=== PATIENT | female | born 1950 | race Two or more races ===

== ENCOUNTER 2022-11-13 10:15 | Emergency (ER) | payer OTHER ==
[~2022-11-13] VITALS: Ht 152.4 cm; Wt 55.3 kg
[2022-11-13] MEDS ORDERED: COZAAR25 MG PO (10:25)
[2022-11-13] MEDS ORDERED: LIPITOR20 MG PO (10:26)
== END 2022-11-13 10:57 | disposition home or self-care (01) ==
LOC: ER 10:16
DX: J06.9 Acute upper respiratory infection, unspecified (principal); Z91.013 Allergy to seafood; Z91.041 Radiographic dye allergy status; Z88.0 Allergy status to penicillin
CPT/HCPCS: 96372; 99284; J1885

== ENCOUNTER 2022-11-15 07:56 | Emergency (ER) | payer OTHER ==
[~2022-11-15] VITALS: Ht 152.4 cm; Wt 54.9 kg
[~2022-11-15 07:56] MED LIST: COZAAR25 MG PO; LIPITOR20 MG PO
[2022-11-15 09:48] LABS: HEMATOCRIT 36.8 % (36.0-45.00); HEMOGLOBIN 11.8 g/dL (12.0-15.00); MEAN CELL VOLUME 78.3 fL (80.00-100.00); MEAN CORPUSCULAR HEMOGLOBIN 25.1 pg (27.00-32.0); MEAN CORPUSCULAR HGB CONC 32.1 g/dl (32.0-36.0); PLATELET COUNT 380 K/uL (150-450); RED CELL DISTRIBUTION WIDTH 16.7 % (11.5-14.5)
== END 2022-11-15 15:49 | disposition home or self-care (01) ==
LOC: ER 07:56
PROVIDERS: Emergency Medicine
DX: R10.9 Unspecified abdominal pain (principal); I10 Essential (primary) hypertension; E03.9 Hypothyroidism, unspecified; Z91.041 Radiographic dye allergy status; Z91.013 Allergy to seafood; Z88.0 Allergy status to penicillin; N28.1 Cyst of kidney, acquired; N20.0 Calculus of kidney